=== PATIENT | male | born 1990 | race Two or more races ===

== ENCOUNTER 2019-12-15 14:49 | Emergency (ER) | payer SELFPAY ==
[~2019-12-15] VITALS: Ht 175.3 cm; Wt 75.0 kg
[2019-12-15 15:51] VITALS: BP 151/82
== END 2019-12-15 17:00 | disposition left against medical advice (07) ==
LOC: ER 14:49
DX: Z03.818 Encounter for observation for suspected exposure to other biological agents ruled out (principal); Z53.21 Procedure and treatment not carried out due to patient leaving prior to being seen by health care provider
CPT/HCPCS: 87635